=== PATIENT | male | born 1940 | race Caucasian/White ===

== ENCOUNTER 2016-09-06 08:40 | Day surgery (SDC) | payer MEDICARE, BC ==
[2016-09-06] MEDS ORDERED: Sodium Chloride 0.9% 10 ML Syringe FLUSH PRN (09:00)
[2016-09-06] MEDS ORDERED: Lactated Ringers 1,000 ML IV SCH (09:00)
[2016-09-06] MEDS ORDERED: Lactated Ringers 1,000 ML IV ONE (09:55)
[2016-09-06] MEDS ORDERED: fentaNYL 100 MCG/2 ML SDV ONE ×2 (10:03→10:15)
[2016-09-06] MEDS ORDERED: Midazolam 1 MG/ML 2 ML SDV ONE ×2 (10:04→10:15)
[2016-09-06] MEDS ORDERED: Propofol 200 MG/20 ML SDV ONE ×2 (10:04→10:15)
--- NOTE | 2016-09-06 10:17 | PCM.PN ---
- General Info Date of Service: 09/06/16 - Review of Systems Systems Review Comment:: 75-year-old male here for surveillance colonoscopy. He has a history of colon polyps. He is medically stable to proceed today with no significant change in his health status since his recent exam. His recent H&P is reviewed today. I discussed the proposed colonoscopy with the patient. Risks such as but not limited to bleeding and GI injury or reviewed. He appears to understand and agrees to proceed. - Patient Data Lab Results last 24 hrs: Laboratory Results - last 24 hr 09/06/16 09/06/16 Range/Units 09:52 09:55 POC Glucose 66 98 (65-110) mg/dl Med Orders - Current: Current Medications Lactated Ringer's (Ringers, Lactated) 1,000 mls @ 125 mls/hr IV ASDIRECTED SUZIE Sodium Chloride (Saline Flush) 10 ml FLUSH ASDIRECTED PRN PRN Reason: Keep Vein Open Discontinued Medications Fentanyl (Sublimaze) Confirm Administered Dose 100 mcg .ROUTE .STK-MED ONE Stop: 09/06/16 10:04 Midazolam HCl (Versed 1 Mg/Ml) Confirm Administered Dose 2 mg .ROUTE .STK-MED ONE Stop: 09/06/16 10:05 Propofol (Diprivan 20 Ml) Confirm Administered Dose 200 mg .ROUTE .STK-MED ONE Stop: 09/06/16 10:05 - Problem List Review Problem List Initiated/Reviewed/Updated: Yes - My Orders Last 24 Hours: My Active Orders 09/06/16 09:00 Blood Glucose Check, Bedside [RC] ONETIME Peripheral IV Care [RC] . DIRECTED Verify Patient Consent Obtain [RC] ASDIRECTED Lactated Ringers [Ringers, Lactated] 1,000 ml IV ASDIRECTED Sodium Chloride 0.9% [Saline Flush] 10 ml FLUSH ASDIRECTED PRN Peripheral IV Insertion Adult [OM.PC] Routine - Assessment Assessment:: History of colon polyps - Plan Plan:: Colonoscopy
--- NOTE | 2016-09-06 10:55 | PCM.OPNOTE ---
- General Post-Op/Procedure Note Date of Surgery/Procedure: 09/06/16 Operative Procedure(s): Colonoscopy with polyp removal Findings: Small Sigmoid Colon Polyp Sigmoid Diverticulosis Pre Op Diagnosis: History of colon polyps Post-Op Diagnosis: Colon polyps. Diverticulosis Anesthesia Technique: MAC Primary Surgeon: Jeremy Streeter Pathology: Sigmoid Colon polyp Output, Urine Amount: 0 EBL in mLs: 2 Complications: None Condition: Good Free Text/Narrative:: Intake & Output 09/05/16 09/06/16 09/06/16 22:59 06:59 14:59 Intake Total 800 Balance 800
[2016-09-06 11:45] VITALS: BP 118/69
--- NOTE | 2016-09-06 15:06 | OR ---
Date of Procedure: 09/06/2016 PREOPERATIVE DIAGNOSIS: History of colon polyps. POSTOPERATIVE DIAGNOSES: 1. Colon polyp. 2. Diverticulosis. OPERATION PERFORMED: Colonoscopy with polypectomy. INDICATIONS FOR SURGERY: This 75-year-old male has a known history of colon polyps and he comes today for surveillance colonoscopy. FINDINGS: The patient has a single polyp in the sigmoid colon, 20 cm from the anal verge. The polyp is semi-pedunculated and 5 mm in size. There is also a [id number] degree of sigmoid diverticulosis although this does not appear to be acutely inflamed or otherwise complicated. PROCEDURE IN DETAIL: The patient was taken to the operating room. He was given intravenous sedation and with him in the left lateral decubitus position, digital rectal exam was performed showing no rectal masses. The Olympus colonoscope was inserted into the rectum, retroflexed examination of the rectal canal was performed. The scope was then carefully advanced to the sigmoid colon region where the above-described polyp was identified. This was removed grossly in its entirety with the biopsy forceps. The scope was then carefully advanced under direct visualization through the entire length of the colon until the cecum was reached. Cecal acquisition was confirmed by noting the normal internal cecal anatomy including the appendiceal orifice and ileocecal valve. The light was also noted to transilluminate the abdominal wall in the right lower quadrant. After examining the cecum, the scope was slowly withdrawn sequentially re-examining the colonic segments until the entire colon and rectum had been fully examined. The scope was removed and the patient was taken from the operating room in satisfactory condition. ESTIMATED BLOOD LOSS: Minimal. COMPLICATIONS: None. PROGNOSIS: Good. FIDE Streeter MD /[id number]
== END 2016-09-06 11:45 | disposition home or self-care (01) ==
LOC: LL.SDS 08:40
PROVIDERS: ATTEND Surgery
PROC: 0DBN8ZZ Excision of Sigmoid Colon, Via Natural or Artificial Opening Endoscopic (ICD-10-PCS; principal; 2016-09-06)
DX: D12.5 Benign neoplasm of sigmoid colon (principal); K57.30 Diverticulosis of large intestine without perforation or abscess without bleeding; I12.9 Hypertensive chronic kidney disease with stage 1 through stage 4 chronic kidney disease, or unspecified chronic kidney disease; E11.22 Type 2 diabetes mellitus with diabetic chronic kidney disease; N18.3 Chronic kidney disease, stage 3 (moderate); D63.1 Anemia in chronic kidney disease; E11.21 Type 2 diabetes mellitus with diabetic nephropathy; G47.30 Sleep apnea, unspecified; K21.9 Gastro-esophageal reflux disease without esophagitis; N40.1 Benign prostatic hyperplasia with lower urinary tract symptoms; E53.8 Deficiency of other specified B group vitamins; Z79.899 Other long term (current) drug therapy
CPT/HCPCS: 00810; 45380; 82962; J2250; J2704; J3010; J7120; 88305

== ENCOUNTER 2017-06-14 20:08 | Emergency (ER) | payer MEDICARE, BC ==
[2017-06-14] MEDS ORDERED: Sodium Chloride 0.9% 10 ML Syringe FLUSH PRN (20:24)
[2017-06-14] MEDS ORDERED: Ondansetron 4 MG/2 ML SDV IVPUSH ONE (20:30)
[2017-06-14] MEDS: Sodium Chloride 0.9% 1,000 ML IV SCH ×2 (20:36→21:57)
--- NOTE | 2017-06-14 20:49 | EDM.PDOC ---
ED HPI GENERAL MEDICAL PROBLEM - General Chief Complaint: General Stated Complaint: syncope Time Seen by Provider: 06/14/17 20:24 Source of Information: Reports: Patient, Family History Limitations: Reports: Altered Mental Status - History of Present Illness INITIAL COMMENTS - FREE TEXT/NARRATIVE: Patient brought to ER by EMS after family became increasingly worried due to observed weakness, worsening cough, and syncopal episode. Patient is weak, not acting like usual self. Family reports cough present for "several" weeks. Worsening. Low grade fever recently around 100. Some abdominal discomfort, emesis earlier today. Patient was walking in home tonight and had syncopal episode while walking, fell backwards "like a tree" and flat on his back onto the floor. Was unresponsive for a short while afterward. Patient is hard to wake up. Will eventually arouse when enough effort is made to get his attention. Knows where he is, date/year. Denies pain except for upper abdominal discomfort. Points to upper abdomen above umbilicus. Nods head when asked if he has cough. Easily fell back asleep and was very difficult to attempt to get full and accurate ROS. - Related Data Allergies Allergy/AdvReac Type Severity Reaction Status Date / Time ACEINHIBITORS Allergy Unknown Rash Verified 06/14/17 20:54 [SHIRAZ Inhibitors] cephalexin [Cephalexin] Allergy Unknown Rash Verified 06/14/17 20:54 glimepiride Allergy Unknown Rash Verified 06/14/17 20:54 hydrochlorothiazide Allergy Unknown Rash Verified 06/14/17 20:54 propoxyphene Allergy Unknown Rash Verified 06/14/17 20:54 tape Allergy Unknown unknown Uncoded 06/14/17 20:54 Home Meds: Home Meds Albuterol [Proventil Neb Soln] 3 ml NEB Q4H PRN 07/14/13 [History] Atenolol [Tenormin] 25 mg PO QPM 07/14/13 [History] Budesonide [Pulmicort] 0.25 mg INH BID 07/14/13 [History] Ibuprofen [Motrin] 400 mg PO Q6H PRN 07/14/13 [History] Ipratropium [Atrovent HFA] 1 puff INH Q4H PRN 07/14/13 [History] Ipratropium/Albuterol Sulfate [Duoneb 0.5 MG-3 MG/3 ML] 3 ml IH Q4H PRN [History] Omeprazole [Prilosec] 20 mg PO QAM 07/14/13 [History] Simvastatin [Zocor] 20 mg PO BEDTIME 07/14/13 [History] amLODIPine [Norvasc] 5 mg PO DAILY 07/14/13 [History] metFORMIN [Glucophage] 850 mg PO BID 07/14/13 [History] Aspirin [Lo-Dose Aspirin EC] 81 mg PO DAILY 09/05/16 [History] Cyanocobalamin (Vitamin B-12) [B-12] 1,000 mcg PO DAILY 09/05/16 [History] Tamsulosin HCl [Flomax] 0.4 mg PO DAILY 09/05/16 [History] Cyclobenzaprine [Flexeril] 10 mg PO TID PRN 06/14/17 [History] Levofloxacin 500 mg PO DAILY 06/14/17 [History] guaiFENesin/Codeine Phosphate [Codeine-Guaifen 10-100 mg/5 ml] 5 ml PO TID PRN 06/14/17 [History] predniSONE [Prednisone] 10 mg PO BID 06/14/17 [History] Past Medical History HEENT History: Reports: Cataract Cardiovascular History: Reports: High Cholesterol, Hypertension Respiratory History: Reports: Bronchitis, Recurrent, COPD, Sleep Apnea Gastrointestinal History: Reports: Diverticulosis, GERD Genitourinary History: Reports: Renal Disease Other Genitourinary History: kidney disease stage 3, excessive urination at night, benign non-nodular prostatic hyperplasia with lower urinary tract symptoms Musculoskeletal History: Reports: Gout, Other (See Below) Other Musculoskeletal History: lumosacral radiculopathy at L3, idiopathic gout of right foot, Tietze's disease Neurological History: Reports: Neuropathy, Diabetic Endocrine/Metabolic History: Reports: Diabetes, Type II Hematologic History: Reports: Anemia, B12 Deficiency - Past Surgical History HEENT Surgical History: Reports: Cataract Surgery Other HEENT Surgeries/Procedures: cataract removal and implant to left eye in 2002 and right eye in 2004 GI Surgical History: Reports: Colonoscopy, Hernia, Abdominal, Polypectomy Other GI Surgeries/Procedures: abdominal hernia repair 1992, lap kylah , colonoscopy with polypectomy in 07/2010 and 07/2013 Musculoskeletal Surgical History: Reports: Other (See Below) Other Musculoskeletal Surgeries/Procedures:: steriod epidural lumbar L3-L4 x 2, removal of sesamoid bone, 1st toe Lt foot Social & Family History - Family History Family Medical History: Unobtainable - Tobacco Use Smoking Status *Q: Former Smoker Years of Tobacco use: 15 Used Tobacco, but Quit: Yes Month Tobacco Last Used: unknown Second Hand Smoke Exposure: No - Alcohol Use Days Per Week of Alcohol Use: 0 Number of Drinks Per Day: 0 Total Drinks Per Week: 0 - Recreational Drug Use Recreational Drug Use: No Drug Use in Last 12 Months: No ED ROS GENERAL - Review of Systems Review Of Systems: Unable To Obtain (See HPI for family observations.) ED EXAM, GENERAL - Physical Exam Exam: See Below Exam Limited By: Altered Mental Status General Appearance: Lethargic Eye Exam: Bilateral Eye: EOMI, PERRL Ears: Normal External Exam, Normal Canal, Hearing Grossly Normal, Normal TMs Nose: No: Nasal Deformity, Nasal Swelling, Nasal Drainage Throat/Mouth: Normal Inspection, Normal Lips, Normal Oropharynx, Normal Voice, No Airway Compromise Head: Atraumatic, Normocephalic. No: Facial Swelling, Facial Tenderness Neck: Normal Inspection, Supple, Other ( complained vaguely of discomfort with palpation of neck area, non-focal). No: Lymphadenopathy (L), Lymphadenopathy (R ) Respiratory/Chest: No Respiratory Distress, No Accessory Muscle Use, Chest Non- Tender, Rales (bilateral lower lungs). No: Rhonchi, Wheezing, Stridor, Accessory Muscle Use, Retractions Cardiovascular: Normal Peripheral Pulses, Regular Rate, Rhythm, No Edema, No Murmur Peripheral Pulses: 2+: Radial (L), Radial (R), Dorsalis Pedis (L), Dorsalis Pedis (R) GI/Abdominal: Soft, No Distention, Tender (mild diffuse discomfort with palpation all 4 quadrants. ), Abnormal Bowel Sounds (decreased all 4 quadrants.) . No: Guarding, Rigid, Rebound (Male) Exam: Deferred Rectal (Males) Exam: Deferred Back Exam: No: CVA Tenderness (L), CVA Tenderness (R), Paraspinal Tenderness, Vertebral Tenderness Extremities: Non-Tender, No Pedal Edema, Normal Capillary Refill Neurological: Oriented, Inattentive, Slow to Respond Psychiatric: Flat Affect Skin Exam: Warm, Dry, Intact, Pallor EKG INTERPRETATION EKG Date: 06/14/17 Time: 20:32 Rhythm: NSR Rate (Beats/Min): 85 [place]: Normal P-Wave: Present QRS: Normal ST-T: Other (No acute ST changes suggestive of ischemia) QT: Normal Comparison: NA - No Prior EKG Course - Vital Signs Last Recorded V/S: Last Vital Signs Temp 37.6 C 06/14/17 21:10 Pulse 85 06/14/17 21:17 Resp 18 06/14/17 21:17 BP 123/63 06/14/17 21:17 Pulse Ox 94 L 06/14/17 21:17 - Orders/Labs/Meds Orders: Active Orders 24 hr Category Date Time Status EKG Documentation Completion [RC] ASDIRECTED Care 06/14/17 20:31 Active Abdomen 2V AP Flat Upright [CR] Stat Exams 06/14/17 20:42 Stop Req Head wo Cont [CT] Stat Exams 06/14/17 20:43 Ordered CULTURE BLOOD [BC] Stat Lab 06/14/17 20:30 Received CULTURE BLOOD [BC] Stat Lab 06/14/17 20:40 Received UA W/MICROSCOPIC [URIN] Stat Lab 06/14/17 20:24 Incomplete Sodium Chloride 0.9% [Normal Saline] 1,000 ml Med 06/14/17 20:45 Active IV ASDIRECTED Sodium Chloride 0.9% [Saline Flush] Med 06/14/17 20:24 Active 10 ml FLUSH ASDIRECTED PRN Blood Culture x2 Reflex Set [OM.PC] Stat Oth 06/14/17 20:24 Ordered Saline Lock Insert [OM.PC] Stat Oth 06/14/17 20:24 Ordered Medication Orders Sodium Chloride (Normal Saline) 1,000 mls @ 999 mls/hr IV ASDIRECTED SUZIE Last Admin: 06/14/17 20:36 Dose: 999 mls/hr Sodium Chloride (Saline Flush) 10 ml FLUSH ASDIRECTED PRN PRN Reason: Keep Vein Open Last Admin: 06/14/17 20:36 Dose: 10 ml Labs: Laboratory Tests 06/14/17 06/14/17 06/14/17 Range/Units 20:30 20:30 20:30 WBC 9.7 (4.0-10.2) K/uL RBC 3.96 L (4.33-5.41) M/uL Hgb 11.7 L (13.1-16.8) g/dL Hct 33.3 L (39.0-49.0) % MCV 84.1 (84.0-98.0) fL MCH 29.5 (28.2-33.3) pg MCHC 35.1 (31.7-36.0) g/dL RDW 13.1 (11.2-14.1) % Plt Count 79 L (150-350) K/uL Neut % (Auto) 89.2 H (45.0-80.0) % Lymph % (Auto) 6.5 L (10.0-50.0) % Phelps % (Auto) 4.1 (2.0-14.0) % Eos % (Auto) 0.1 (0.0-5.0) % Baso % (Auto) 0.1 (0.0-2.0) % Neut # (Auto) 8.68 H (1.40-7.00) K/uL Lymph # (Auto) 0.63 (0.50-3.50) K/uL Phelps # (Auto) 0.40 (0.00-1.00) K/uL Eos # (Auto) 0.01 (0.00-0.50) K/uL Baso # (Auto) 0.01 (0.00-0.20) K/uL Lactic Acid 1.0 (0.4-2.0) mmol/L Creatine Kinase (26-308) U/L Creatine Kinase Index (0.0-2.5) % CK-MB (CK-2) (0.00-3.60) ng/mL Troponin I (0.000-0.056) ng/mL NT-Pro-B Natriuret Pep 523 H (0-125) pg/mL 06/14/17 Range/Units 20:30 WBC (4.0-10.2) K/uL RBC (4.33-5.41) M/uL Hgb (13.1-16.8) g/dL Hct (39.0-49.0) % MCV (84.0-98.0) fL MCH (28.2-33.3) pg MCHC (31.7-36.0) g/dL RDW (11.2-14.1) % Plt Count (150-350) K/uL Neut % (Auto) (45.0-80.0) % Lymph % (Auto) (10.0-50.0) % Phelps % (Auto) (2.0-14.0) % Eos % (Auto) (0.0-5.0) % Baso % (Auto) (0.0-2.0) % Neut # (Auto) (1.40-7.00) K/uL Lymph # (Auto) (0.50-3.50) K/uL Phelps # (Auto) (0.00-1.00) K/uL Eos # (Auto) (0.00-0.50) K/uL Baso # (Auto) (0.00-0.20) K/uL Lactic Acid (0.4-2.0) mmol/L Creatine Kinase 44 (26-308) U/L Creatine Kinase Index 0.5 (0.0-2.5) % CK-MB (CK-2) 0.20 (0.00-3.60) ng/mL Troponin I 0.001 (0.000-0.056) ng/mL NT-Pro-B Natriuret Pep (0-125) pg/mL Meds: Medications Generic Name Dose Route Start Last Admin Trade Name Freq PRN Reason Stop Dose Admin Sodium Chloride 1,000 mls @ 999 mls/hr 06/14/17 20:45 06/14/17 20:36 Normal Saline IV 999 mls/hr ASDIRECTED SUZIE Administration Sodium Chloride 10 ml 06/14/17 20:24 06/14/17 20:36 Saline Flush FLUSH 10 ml ASDIRECTED PRN Administration Keep Vein Open Discontinued Medications Generic Name Dose Route Start Last Admin Trade Name Freq PRN Reason Stop Dose Admin Ondansetron HCl 4 mg 06/14/17 20:30 06/14/17 20:36 Zofran IVPUSH 06/14/17 20:31 4 mg ONETIME ONE Administration - Radiology Interpretation Free Text/Narrative:: Chest Xray taken earlier today showed questionable early lower left infiltrate. - Re-Assessments/Exams Free Text/Narrative Re-Assessment/Exam: 06/14/17 21:40 WBC normal. Hgb 11.7 (89% Neut) ProBNP 523 Cardiac enzymes normal. Blood cultures x2 pending Influenza B positive. IV fluids given. CT scan of head ordered given syncopal episode and 06/14/17 22:04 CT showed small subarachnoid bleed front right near midline. Call placed to [facility]. Patient discussed with , Hospitalist, as well as , Neurosurgery. Plans for transfer made. Patient transferred to [facility] via EMS. Vital signs stable/patient remained stable in ER during stay. Departure - Departure Time of Disposition: 21:30 Disposition: DC/Tfer to Acute Hospital 02 Condition: Fair Clinical Impression: Influenza B, Weakness, Subarachnoid bleed Altered mental status, unspecified Qualifiers: Altered mental status type: somnolence Qualified Code(s): R40.0 - Somnolence Episode of syncope Qualifiers: Syncope type: unspecified Qualified Code(s): R55 - Syncope and collapse Head trauma Qualifiers: Encounter type: initial encounter Qualified Code(s): S09.90XA - Unspecified injury of head, initial encounter - Discharge Information Referrals: Johnathan Noble PA [Primary Care Provider] - Forms: ED Department Discharge - My Orders Last 24 Hours: My Active Orders 06/14/17 20:24 UA W/MICROSCOPIC [URIN] Stat Sodium Chloride 0.9% [Saline Flush] 10 ml FLUSH ASDIRECTED PRN Blood Culture x2 Reflex Set [OM.PC] Stat Saline Lock Insert [OM.PC] Stat 06/14/17 20:30 CULTURE BLOOD [BC] Stat 06/14/17 20:31 EKG Documentation Completion [RC] ASDIRECTED 06/14/17 20:40 CULTURE BLOOD [BC] Stat 06/14/17 20:42 Abdomen 2V AP Flat Upright [CR] Stat 06/14/17 20:43 Head wo Cont [CT] Stat 06/14/17 20:45 Sodium Chloride 0.9% [Normal Saline] 1,000 ml IV ASDIRECTED - Assessment/Plan Last 24 Hours: My Active Orders 06/14/17 20:24 UA W/MICROSCOPIC [URIN] Stat Sodium Chloride 0.9% [Saline Flush] 10 ml FLUSH ASDIRECTED PRN Blood Culture x2 Reflex Set [OM.PC] Stat Saline Lock Insert [OM.PC] Stat 06/14/17 20:30 CULTURE BLOOD [BC] Stat 06/14/17 20:31 EKG Documentation Completion [RC] ASDIRECTED 06/14/17 20:40 CULTURE BLOOD [BC] Stat 06/14/17 20:42 Abdomen 2V AP Flat Upright [CR] Stat 06/14/17 20:43 Head wo Cont [CT] Stat 06/14/17 20:45 Sodium Chloride 0.9% [Normal Saline] 1,000 ml IV ASDIRECTED
[2017-06-14] MEDS ORDERED: Sodium Chloride 0.9% 1,000 ML IV SCH ×3 (21:55→22:00)
== END 2017-06-14 22:10 ==
LOC: LL.ED 20:08
DX: S06.6X9A Traumatic subarachnoid hemorrhage with loss of consciousness of unspecified duration, initial encounter (principal); R55 Syncope and collapse; J10.1 Influenza due to other identified influenza virus with other respiratory manifestations; E78.00 Pure hypercholesterolemia, unspecified; N18.3 Chronic kidney disease, stage 3 (moderate); I12.9 Hypertensive chronic kidney disease with stage 1 through stage 4 chronic kidney disease, or unspecified chronic kidney disease; E11.22 Type 2 diabetes mellitus with diabetic chronic kidney disease; Z88.1 Allergy status to other antibiotic agents; Z88.8 Allergy status to other drugs, medicaments and biological substances; Z79.84 Long term (current) use of oral hypoglycemic drugs; Z79.899 Other long term (current) drug therapy; Z79.82 Long term (current) use of aspirin; Z87.891 Personal history of nicotine dependence; W19.XXXA Unspecified fall, initial encounter
CPT/HCPCS: 36415; 70450; 82550; 82553; 83605; 83880; 84484; 85025; 87040; 87804; 93005; 96361; 96374; 99285; J2405; J7030; J7050

== ENCOUNTER 2020-03-03 09:07 | Day surgery (SDC) | payer MEDICARE, BC ==
[~2020-03-03 09:07] MED LIST: Lactated Ringers 1,000 ML IV SCH; Sodium Chloride 0.9% 10 ML Syringe FLUSH PRN
[2020-03-03] MEDS ORDERED: Midazolam 1 MG/ML 2 ML SDV ONE ×2 (10:09→10:12)
[2020-03-03] MEDS ORDERED: Propofol 200 MG/20 ML SDV ONE ×2 (10:09→10:12)
--- NOTE | 2020-03-03 10:11 | PCM.PN ---
- General Info Date of Service: 03/03/20 - Review of Systems Systems Review Comment:: 79-year-old male with history of colon polyps as well as history of diverticulosis comes today for surveillance colonoscopy. He denies any recent change in his bowel pattern. He is medically stable to proceed today. His recent history and physical is reviewed and no significant changes are noted. I have discussed the proposed colonoscopy with the patient. He agrees to proceed excepting risks. - Patient Data Vitals - Most Recent: Last Vital Signs Temp 97.0 F 03/03/20 09:46 Pulse 87 03/03/20 09:46 Resp 18 03/03/20 09:46 BP 141/91 H 03/03/20 09:46 Pulse Ox 96 03/03/20 09:46 Weight - Most Recent: 87.543 kg Med Orders - Current: Current Medications Lactated Ringer's (Ringers, Lactated) 1,000 mls @ 125 mls/hr IV ASDIRECTED SUZIE Last Admin: 03/03/20 09:45 Dose: 125 mls/hr Documented by: Sodium Chloride (Saline Flush) 10 ml FLUSH ASDIRECTED PRN PRN Reason: Keep Vein Open Sepsis Event Note - Focused Exam Vital Signs: Vital Signs Temp Pulse Resp BP Pulse Ox 03/03/20 09:46 97.0 F 87 18 141/91 H 96 - Problem List Review Problem List Initiated/Reviewed/Updated: Yes - Assessment Assessment:: History of colon polyps - Plan Plan:: Colonoscopy
--- NOTE | 2020-03-03 11:08 | PCM.OPNOTE ---
- General Post-Op/Procedure Note Date of Surgery/Procedure: 03/03/20 Operative Procedure(s): Colonoscopy with polypectomy and biopsy Findings: Multiple sessile right colon polyps Extensive Sigmoid Diverticulosis Pre Op Diagnosis: History of colon polyps Post-Op Diagnosis: Colon polyps. Sigmoid diverticulosis Anesthesia Technique: MAC Primary Surgeon: Jeremy Streeter Pathology: Colon polyps EBL in mLs: 2 Complications: None Condition: Good
--- NOTE | 2020-03-03 12:16 | OR ---
Date of Procedure: 03/03/2020 PREOPERATIVE DIAGNOSIS: History of colon polyps. POSTOPERATIVE DIAGNOSES: Colon polyps and sigmoid diverticulosis. OPERATIONS PERFORMED: Colonoscopy with polypectomy and biopsy. INDICATIONS FOR SURGERY: This 79-year-old male has a known history of colon polyps and comes today for surveillance colonoscopy. FINDINGS: In the patient's ascending colon, there is a relatively large, somewhat lobulated sessile polyp estimated at 2 cm in size. It has a broad base. All of surrounding mucosa appears normal and the polyp is soft. This polyp was biopsied but not removed because of risk of perforation with standard polypectomy technique. The patient had another similar appearing polyp, but this was approximately 8 mm in size in the transverse colon and this polyp was removed. The patient also has extensive diverticulosis of the sigmoid colon, although this does not appear to be acutely inflamed. DESCRIPTION OF PROCEDURE: The patient was taken to the operating room. He was given intravenous sedation, and with him in the left lateral decubitus position, digital rectal exam was performed showing no rectal masses. The Olympus colonoscope was inserted into the rectum and retroflexed examination of the rectal canal was performed. The scope was then carefully advanced under direct visualization through the entire length of the colon until the cecum was reached. Cecal acquisition was confirmed by noting the normal internal cecal anatomy including the appendiceal orifice and the ileocecal valve. The light was also noted to transilluminate the abdominal wall in the right lower quadrant. Slowly, the scope was then withdrawn, and upon withdrawal of the scope, the above-described larger polyp is identified in the ascending colon. There was fear that any attempt to completely remove this broad-based polyp with a standard polypectomy technique would put the patient at risk for perforation and it was felt that he would likely need advanced polypectomy techniques to have this completely removed. The polyp was, therefore, simply biopsied with cold biopsy forceps, obtaining authorization representative samples of the polyp and the mucosa surrounding the polyp is tattooed to leave permanent identification of the location of the polyp. The scope was then further withdrawn, and in the transverse colon, a somewhat similar appearing but smaller polyp was identified. This was estimated at 8 mm in size and sessile in configuration. This polyp was removed with polypectomy snare and retrieved into a polyp trap. Examination was then completed, and after the entire colon and rectum had been fully examined with no sign of any complication, the scope was removed and the patient was taken from the operating room in satisfactory condition. ESTIMATED BLOOD LOSS: 2 mL. COMPLICATIONS: None. PROGNOSIS: Good. Comment: We will await the pathology report on the polyp biopsy, and if benign, then we will refer to Gastroenterology for removal of this large polyp using advance polypectomy techniques. FIDE Streeter MD /[id number]
== END 2020-03-03 12:50 | disposition home or self-care (01) ==
LOC: LL.SDS 09:07
PROVIDERS: ATTEND Surgery
DX: Z12.11 Encounter for screening for malignant neoplasm of colon (principal); K57.30 Diverticulosis of large intestine without perforation or abscess without bleeding; D12.2 Benign neoplasm of ascending colon; I12.9 Hypertensive chronic kidney disease with stage 1 through stage 4 chronic kidney disease, or unspecified chronic kidney disease; E11.22 Type 2 diabetes mellitus with diabetic chronic kidney disease; E11.42 Type 2 diabetes mellitus with diabetic polyneuropathy; N18.30 Chronic kidney disease, stage 3 unspecified; Z98.890 Other specified postprocedural states; Z79.899 Other long term (current) drug therapy; Z88.8 Allergy status to other drugs, medicaments and biological substances; Z87.891 Personal history of nicotine dependence; Z01.812 Encounter for preprocedural laboratory examination; Z20.828 Contact with and (suspected) exposure to other viral communicable diseases
CPT/HCPCS: 00812; J2250; J2704; J7120; U0002